=== PATIENT | male | born 1990 | race Caucasian/White ===

== ENCOUNTER 2018-12-26 14:36 | Emergency (ER) | payer MEDICAID ==
[~2018-12-26] VITALS: Ht 180.3 cm; Wt 91.0 kg
[2018-12-26 15:06] VITALS: BP 105/63
== END 2018-12-26 16:24 | disposition home or self-care (01) ==
LOC: ER 14:36
DX: R14.3 Flatulence (principal); F17.210 Nicotine dependence, cigarettes, uncomplicated
CPT/HCPCS: 99281